=== PATIENT | male | born 1955 | race Caucasian/White ===

== ENCOUNTER 2017-03-06 12:49 | Emergency (ER) | payer MEDICARE ==
--- NOTE | 2017-03-06 14:49 | UC ---
Eye Complaint HPI - HPI Summary HPI Summary: HAD NASAL CONGESTION LAST WEEK WHICH RESOLVED. NOW HAVING RIGHT EYE REDNESS AND THICK CRUSTY DISCHARGE IN RIGHT EYE THIS MORNING. NO FEVER. NO VISION LOSS. NO PAIN WITH EYE MOVEMENT. - History of Current Complaint Chief Complaint: UCEye Stated Complaint: EYE ISSUE Time Seen by Provider: 03/06/17 13:10 Hx Obtained From: Patient Onset/Duration: Gradual Onset, Lasting Hours, Worse Since - PROGRESSIVE Timing: Hours Severity Initially: Mild Severity Currently: Mild Pain Intensity: 0 Pain Scale Used: 0-10 Numeric Location of Injury: Conjunctiva Character: Dull Aggravating Factor(s): Nothing Alleviating Factor(s): Nothing Associated Signs And Symptoms: Positive: Drainage (Purulent). Negative: Photophobia, Drainage (Clear), Vision Impairment Right, Vision Impairment Left, Fever, Swelling - Risk Factors Penetrating Injury Risk Factor: Negative Acute Glaucoma Risk Factors: Negative Optic Artery Occlusion Risk Factors: Negative - Allergies/Home Medications Allergies/Adverse Reactions: Allergies Allergy/AdvReac Type Severity Reaction Status Date / Time folmaldahyde Allergy Rash Uncoded 03/06/17 12:55 Home Medications: Home Medications GuaiFENesin DM* [Robitussin DM*] 5 ml PO Q6H PRN 03/06/17 [History Confirmed ] Loratadine [Claritin 10 MG CAP] 10 mg PO DAILY PRN 03/06/17 [History Confirmed 03/06/17] PMH/Surg Hx/FS Hx/Imm Hx Previously Healthy: Yes - Surgical History Surgical History: Yes Surgery Procedure, Year, and Place: Hernia repair, appe - Family History Known Family History: Negative: Diabetes - Social History Occupation: Employed Full-time Lives: With Family Alcohol Use: None Substance Use Type: None Smoking Status (MU): Never Smoked Tobacco Review of Systems Constitutional: Negative Skin: Negative Eyes: Eye Redness ENT: Negative Respiratory: Negative Cardiovascular: Negative Gastrointestinal: Negative Genitourinary: Negative Motor: Negative Neurovascular: Negative Musculoskeletal: Negative Neurological: Negative Psychological: Negative All Other Systems Reviewed And Are Negative: Yes Physical Exam Triage Information Reviewed: Yes Appearance: Well-Appearing, No Pain Distress, Well-Nourished Vital Signs: Initial Vital Signs Temp 98.0 F 03/06/17 12:56 Pulse 82 03/06/17 12:56 Resp 16 03/06/17 12:56 BP 150/89 03/06/17 12:56 Pulse Ox 99 03/06/17 12:56 Vital Signs Reviewed: Yes Eyes: Positive: Conjunctiva Inflamed - RIGHT, Discharge - RIGHT ENT Exam: Normal ENT: Positive: Normal ENT inspection, Hearing grossly normal, Pharynx normal, TMs normal Dental Exam: Normal Neck exam: Normal Neck: Positive: Supple, Nontender, No Lymphadenopathy Respiratory Exam: Normal Respiratory: Positive: Chest non-tender, Lungs clear, Normal breath sounds, No respiratory distress, No accessory muscle use Cardiovascular Exam: Normal Cardiovascular: Positive: RRR, No Murmur, Pulses Normal, Brisk Capillary Refill Abdominal Exam: Normal Musculoskeletal Exam: Normal Musculoskeletal: Positive: Strength Intact, ROM Intact, No Edema Neurological Exam: Normal Psychological Exam: Normal Skin Exam: Normal Eye Complaint Course/Dx - Differential Dx/Diagnosis Differential Diagnosis/HQI/PQRI: Conjunctivitis, Corneal Abrasion Provider Diagnoses: RIGHT CONJUNCTIVITIS Discharge - Discharge Plan Condition: Stable Disposition: HOME Prescriptions: Tobramycin 0.3% OPHTH.KAREN* 1 drop RIGHT EYE Q4H #1 btl Patient Education Materials: Conjunctivitis (ED) Referrals: No Primary Care Phys,NOPCP [Medical Doctor] -
== END 2017-03-06 13:42 | disposition home or self-care (01) ==
LOC: UCEAST 12:49
DX: H10.31 Unspecified acute conjunctivitis, right eye (principal); Z11.4 Encounter for screening for human immunodeficiency virus [HIV]
CPT/HCPCS: 36415; 86703; 86803; 99202; G0463

== ENCOUNTER 2023-03-23 11:42 | Observation (INO) ==
[~2023-03-23 11:42] MED LIST: Buffered Lidocaine 1% SYRIN 1 ml INTRADERM ONE; Lactated Ringers 1000 ml BAG 1,000 ML IV SCH; Midazolam 2 mg/2 ml VIAL 1 mg/ml 2 ml VIAL (2 mg) ONE
[2023-03-23] MEDS ORDERED: ceFAZolin 2 GM PREMIX 2 GM/50 ML BAG ONE (11:54)
[2023-03-23 12:39] LABS: Rapid COVID-19 Molecular Undetected (Undetected)
[2023-03-23] MEDS ORDERED: Naloxone 0.4 mg VIAL 0.4 mg/ml 1 ml VIAL IV PRN (13:29)
[2023-03-23] MEDS ORDERED: HYDROmorphone 1 MG/1 ML SYRINGE IV PRN (13:29)
[2023-03-23] MEDS ORDERED: Prochlorperazine 5 mg/ml 2 ml VIAL (10 mg) IV PRN (13:29)
[2023-03-23] MEDS ORDERED: ROPIVACAINE 5 MG/ML 30 ML BTL (0.5%) ONE ×2 (14:48→15:01)
[2023-03-23] MEDS ORDERED: Midazolam 2 mg/2 ml VIAL 1 mg/ml 2 ml VIAL (2 mg) ONE (14:54)
[2023-03-23] MEDS ORDERED: fentaNYL 100 mcg/2 ml 50 MCG/ML VIAL ONE (15:00)
[2023-03-23] MEDS ORDERED: Lactulose 30 ml UDC PO PRN (16:08)
[2023-03-23] MEDS ORDERED: Magnesium Hydroxide LIQ 30 ML UDC PO PRN (16:08)
[2023-03-23] MEDS ORDERED: Ondansetron ODT 4 mg TAB 4 MG TAB PO PRN (16:08)
[2023-03-23] MEDS ORDERED: Morphine 2 MG/ML SYRINGE IV PRN (16:08)
[2023-03-23] MEDS ORDERED: Propofol 10 MG/ML 20 ML BTL ONE (17:28)
[2023-03-23] MEDS ORDERED: Fluticasone NASAL SPRAY 50MCG 16 gm SPRAY BTL INTRANASAL PRN (20:02)
[2023-03-23] MEDS ORDERED: Enalaprilat IV 1.25 mg/ml 1 ml VIAL (1.25 MG) IV PRN (20:03)
[2023-03-23] MEDS: Magnesium Hydroxide LIQ 30 ML UDC PO SCH (20:55)
[2023-03-23] MEDS ORDERED: Simvastatin 10 mg TAB (NF) PO SCH (21:00)
[2023-03-23] MEDS: Lactated Ringers 1000 ml BAG 1,000 ML IV SCH (21:05)
[2023-03-23] MEDS: Ondansetron 4 mg VIAL 2 MG/ML 2 ml VIAL IV PRN (21:48)
[2023-03-24] MEDS ORDERED: ceFAZolin 1 GM ADVAN 1 GM in NS 0.9% 50 ML 50 ML IVPB SCH
[2023-03-24] MEDS: ceFAZolin 1 GM in Dextrose 1 GM/50 ML BAG IVPB SCH ×3 (00:44→16:05)
[2023-03-24] MEDS: Ondansetron 4 mg VIAL 2 MG/ML 2 ml VIAL IV PRN (04:24)
[2023-03-24] MEDS: Lactated Ringers 1000 ml BAG 1,000 ML IV SCH (06:32)
[2023-03-24 06:59] LABS: Hematocrit 35.8 % (38-53); Hemoglobin 12.3 g/dL (13.2-16.3); Mean Platelet Volume 7.8 fL (7.5-11.2); Platelet Count 249 10^3/uL (150-450)
[2023-03-24 07:13] LABS: Calcium 8.5 mg/dL (8.6-10.3); Creatinine, Serum 0.76 mg/dL (0.67-1.17); Potassium 4.4 mmol/L (3.5-5.0); eGFR CKD-EPI 99.1 (>60)
[2023-03-24] MEDS: Magnesium Hydroxide LIQ 30 ML UDC PO SCH (07:48)
[2023-03-24] MEDS ORDERED: Vitamin THERAPEUTIC TAB PO SCH (09:00)
[2023-03-24 14:40] VITALS: BP 158/93
== END 2023-03-24 18:53 | disposition home or self-care (01) ==
LOC: SSU 11:42 → OR 11:42
PROVIDERS: ADMIT Orthopaedic Surgery Adult Reconstructive Orthopaedic Surgery; ATTEND Orthopaedic Surgery Adult Reconstructive Orthopaedic Surgery